=== PATIENT | male | born 1985 | race Caucasian/White ===

== ENCOUNTER 2017-07-15 16:14 | Outpatient (CLI) | payer BC ==
--- NOTE | 2017-07-16 09:47 | XRAY Report ---
TWO VIEW RIGHT KNEE: 07/15/2017 CLINICAL INDICATION: Bautista cyst. FINDINGS: Frontal and lateral views of the right knee demonstrate no evidence of fracture or dislocation. The joint spaces are preserved. No effusion is present. IMPRESSION: NORMAL RIGHT KNEE. TD: 07/16/2017 09:46
--- NOTE | 2017-07-16 09:55 | Ultrasound Report ---
ULTRASOUND RIGHT POPLITEAL FOSSA: 07/15/2017 CLINICAL INDICATION: Bautista cyst. TECHNIQUE: Real-time scanning was performed with industrial relations representative static images obtained. FINDINGS: Ultrasound of the right popliteal fossa was performed. There is a 5.4 x 3.7 x 1.0 cm Bautista cyst. No solid mass is seen. IMPRESSION: RIGHT POPLITEAL BAUTISTA CYST. TD: 07/16/2017 09:54
== END 2017-07-15 16:15 | disposition home or self-care (01) ==
LOC: DI 16:14
PROVIDERS: ATTEND Internal Medicine
DX: M71.21 Synovial cyst of popliteal space [Baker], right knee (principal)
CPT/HCPCS: 76882

== ENCOUNTER 2017-07-19 13:59 | Emergency (ER) | payer BC ==
[2017-07-19 14:05] VITALS: BP 144/75
--- NOTE | 2017-07-19 14:18 | ED Physician Documentation ---
PD HPI HEAD INJURY - Stated complaint Stated Complaint: HEAD LAC - Chief complaint Chief Complaint: Laceration - History obtained from History obtained from: Patient, Family - History of Present Illness Mechanism of head injury: Blow Where head injury occurred: Home Timing - onset: Today Location of injury: Front Associated symptoms: No: LOC, AMS, Amnesia, Nausea / vomiting, Neck pain, Paresthesias, Seizures, Ear drainage, Nasal drainage Symptoms improve with: Rest Symptoms worsen with: Palpation Contributing factors: No: Anticoagulated Similar symptoms before: Diagnosis (laceration) Recently seen: Not recently seen - Additional information Additional information: 32-year-old male was helping his father building a picnic senior care and his father dropped a 2 x 6 onto his head. He has a laceration to his scalp at the hairline and he did not have any loss of consciousness associated with this injury. He denies any nausea or vomiting dizziness headache or trouble concentrating. Review of Systems Constitutional: denies: Fever Eyes: denies: Decreased vision Ears: denies: Ear pain Nose: denies: Rhinorrhea / runny nose, Congestion Throat: denies: Sore throat Respiratory: denies: Cough GI: denies: Nausea, Vomiting Skin: reports: Laceration (s). denies: Rash Musculoskeletal: denies: Neck pain, Back pain Neurologic: reports: Head injury. denies: Generalized weakness, Focal weakness , Numbness, Headache, LOC PD PAST MEDICAL HISTORY - Past Medical History Past Medical History: Yes GI: Crohn's disease - Present Medications Home Medications: Ambulatory Orders Medication Instructions Recorded Confirmed Adalimumab [Humira] 07/19/17 - Allergies Allergies/Adverse Reactions: Allergies Allergy/AdvReac Type Severity Reaction Status Date / Time No Known Drug Allergies Allergy Verified 07/19/17 14:05 - Social History Does the pt smoke?: No Smoking Status: Never smoker - Immunizations Immunizations: TDAP >10years/unknown PD ED PE NORMAL - Vitals Vital signs reviewed: Yes (Hypertensive mild) - General General: Alert and oriented X 3, No acute distress, Well developed/nourished - HEENT HEENT: Atraumatic, PERRL, EOMI, Other (In the center of the forehead at the hairline is a 3 and half centimeter laceration that does not involve deeper structures. Wound is clean and the margins are without maceration. ) - Neck Neck: Supple, no meningeal sign - Respiratory Respiratory: No respiratory distress - Derm Derm: Normal color, Warm and dry, No rash - Extremities Extremities: No deformity, No edema - Neuro Neuro: Alert and oriented X 3, licensed pharmacist 2-12 intact, No motor deficit, No sensory deficit, Normal speech Eye Opening: Spontaneous Motor: Obeys Commands Verbal: Oriented GCS Score: 15 - Psych Psych: Normal mood, Normal affect Results - Vitals Vitals: Vital Signs - 24 hr 07/19/17 14:03 Temperature 37 C Heart Rate 61 Respiratory 16 Rate Blood Pressure 144/75 H O2 Saturation 98 Oxygen O2 Source Room air Procedures - Laceration (location) forehead Length in cm: 3.5 Wound type: Linear, Clean Neurovascular status: Sensory intact, Motor intact, Vascular intact Tendon involvement: Tendon intact Wound Preparation: Irrigated copiously NS, Wound explored, To the base Skin layer closure: Dermabond Other: Patient tolerated well, No complications, Neurovascular intact, Dressing applied, Tetanus booster given Complexity: Simple PD MEDICAL DECISION MAKING - ED course Complexity details: considered differential, d/w patient, d/w family ED course: 32-year-old male with a laceration to the forehead that is superficial has good reapproximation of the skin and this is closed with Dermabond. Is given a tetanus booster. Departure - Departure Disposition: 01 Home, Self Care Clinical Impression: Forehead laceration Qualifiers: Encounter type: initial encounter Qualified Code(s): S01.81XA - Laceration without foreign body of other part of head, initial encounter Condition: Stable Instructions: ED Laceration Facial Skin Glue Follow-Up: [facility] [Provider Group]
[2017-07-19] MEDS ORDERED: TETANUS/DIPHTHERIA/PERTUSSIS 0.5 ML SYRINGE IM ONE (14:19)
== END 2017-07-19 14:37 | disposition home or self-care (01) ==
LOC: ED 13:59
DX: S01.81XA Laceration without foreign body of other part of head, initial encounter (principal); W20.8XXA Other cause of strike by thrown, projected or falling object, initial encounter; Y93.H3 Activity, building and construction; Y92.009 Unspecified place in unspecified non-institutional (private) residence as the place of occurrence of the external cause
CPT/HCPCS: 12013; 90471; 99282; 99283

== ENCOUNTER 2018-03-02 09:08 | Outpatient (CLI) | payer BC ==
[2018-03-02 18:36] LABS: BASOPHILS % (AUTO) 0.5 %; EOSINOPHILS % (AUTO) 1.5 %; LYMPHOCYTES # (AUTO) 1.2 10^3/uL (1.5-3.5); LYMPHOCYTES % (AUTO) 37.1 %; MEAN CORPUSCULAR HEMOGLOBIN 30.7 pg (27.0-31.0); MEAN CORPUSCULAR HGB CONC 33.5 g/dL (32.0-36.0); MEAN CORPUSCULAR VOLUME 91.5 fL (80.0-94.0); MEAN PLATELET VOLUME 8.3 fL (7.4-11.4); MONOCYTES # (AUTO) 0.2 10^3/uL (0.0-1.0); MONOCYTES % (AUTO) 7.5 %; NEUTROPHILS # (AUTO) 1.8 10^3/uL (1.5-6.6); NEUTROPHILS % (AUTO) 53.4 %; PLT - PLATELET COUNT 194 10^3/uL (130-450); RED BLOOD COUNT 4.56 10^6/uL (4.70-6.10); RED CELL DISTRIBUTION WIDTH 14.2 % (12.0-15.0); WHITE BLOOD COUNT 3.3 x10^3/uL (4.8-10.8)
[2018-03-02 18:58] LABS: ALBUMIN 4.6 g/dL (3.2-5.5); ALBUMIN/GLOBULIN RATIO 1.6 (1.0-2.2); BILIRUBIN,TOTAL 0.9 mg/dL (0.2-1.0); CALCIUM 9.5 mg/dL (8.5-10.3); CREATININE 0.9 mg/dL (0.6-1.2); TOTAL PROTEIN 7.5 g/dL (6.7-8.2)
== END 2018-03-02 09:09 | disposition home or self-care (01) ==
LOC: LAB.F 09:08
PROVIDERS: ATTEND Internal Medicine Gastroenterology
DX: K50.012 Crohn's disease of small intestine with intestinal obstruction (principal)
CPT/HCPCS: 36415; 80053; 82607; 85025

== ENCOUNTER 2020-07-25 07:53 | Outpatient (CLI) | payer BC | END 2020-07-25 07:54 | disposition home or self-care (01) | LOC: LAB.S 07:53 | PROVIDERS: ATTEND Family Medicine | DX: Z01.84 Encounter for antibody response examination (principal) | CPT/HCPCS: 86769 ==

== ENCOUNTER 2020-09-04 07:34 | Outpatient (CLI) | payer BC ==
[2020-09-04 14:46] LABS: BASOPHILS % (AUTO) 0.6 %; EOSINOPHILS # (AUTO) 0.1 10^3/uL (0.0-0.7); EOSINOPHILS % (AUTO) 2.2 %; HCT - HEMATOCRIT 41.2 % (42.0-52.0); HGB - HEMOGLOBIN 13.3 g/dL (14.0-18.0); LYMPHOCYTES # (AUTO) 1.2 10^3/uL (1.5-3.5); LYMPHOCYTES % (AUTO) 38.5 %; MEAN CORPUSCULAR HGB CONC 32.3 g/dL (32.0-36.0); MONOCYTES # (AUTO) 0.3 10^3/uL (0.0-1.0); MONOCYTES % (AUTO) 10.4 %; NEUTROPHILS # (AUTO) 1.5 10^3/uL (1.5-6.6); PLT - PLATELET COUNT 199 10^3/uL (130-450); RED BLOOD COUNT 4.43 10^6/uL (4.70-6.10); WHITE BLOOD COUNT 3.2 x10^3/uL (4.8-10.8)
[2020-09-04 15:44] LABS: ALBUMIN 4.3 g/dL (3.2-5.5); ALBUMIN/GLOBULIN RATIO 1.4 (1.0-2.2); ALKALINE PHOSPHATASE 43 IU/L (42-121); ALT ALANINE AMINOTRANSFERASE 23 IU/L (10-60); AST ASPARTATE AMINOTRANSFERASE 32 IU/L (10-42); BILIRUBIN,TOTAL 1.1 mg/dL (0.2-1.0); BUN - BLOOD UREA NITROGEN 22 mg/dL (6-20); CALCIUM 8.9 mg/dL (8.5-10.3); CARBON DIOXIDE - CO2 27 mmol/L (21-32); CHLORIDE 101 mmol/L (101-111); CREATININE 0.9 mg/dL (0.6-1.2); GFR - MDRD 97 (>89); GLUCOSE 95 mg/dL (70-100); POTASSIUM 4.2 mmol/L (3.5-5.0); SODIUM 135 mmol/L (135-145); TOTAL PROTEIN 7.3 g/dL (6.7-8.2)
[2020-09-04 15:55] LABS: CRP - C-REACTIVE PROTEIN < 1.0 mg/dL (0-1.0)
== END 2020-09-04 07:35 | disposition home or self-care (01) ==
LOC: LAB.S 07:34
PROVIDERS: ATTEND Internal Medicine Gastroenterology
DX: K50.012 Crohn's disease of small intestine with intestinal obstruction (principal)
CPT/HCPCS: 36415; 80053; 85025; 85651; 86140

== ENCOUNTER 2021-11-21 07:00 | Outpatient (CLI) | payer BC | END 2021-11-21 23:59 | disposition home or self-care (01) | LOC: LAB.R 07:00 | PROVIDERS: ATTEND Internal Medicine Gastroenterology | DX: K50.012 Crohn's disease of small intestine with intestinal obstruction (principal) | CPT/HCPCS: 83993 ==

== ENCOUNTER 2022-01-01 08:00 | Outpatient (CLI) | payer BC | END 2022-01-01 23:59 | disposition home or self-care (01) | LOC: LAB.S 08:00 | PROVIDERS: ATTEND Physician Assistant | DX: J02.9 Acute pharyngitis, unspecified (principal) | CPT/HCPCS: 87070 ==

== ENCOUNTER 2022-03-17 22:26 | Emergency (ER) | payer BC ==
--- OUTSIDE RECORDS SUMMARY | 2022-03-17 22:37 | EXTERNAL MEDICAL SUMMARY RPT | Continuity of Care Document ---
:1985 Author Organization [facility] Address [address] [place] [address] Phone Care Team Providers Name Role Phone Unavailable Unavailable Unavailable Chacho Christopher Pa-C Unavailable Unavailable Allergies No information. Encounters No information. Functional Status No information. Immunizations No information. Medications date description facility 2022-01-02 00:00 adalimumab [facility] 2022-01-03 00:00 adalimumab [facility] 2022-01-02 00:00 budesonide [facility] 2022-01-03 00:00 budesonide [facility] 2022-01-02 00:00 folic acid [facility] 2022-01-03 00:00 folic acid [facility] 2022-01-02 00:00 budesonide [facility] 2022-01-03 00:00 budesonide [facility] 2022-01-02 00:00 adalimumab [facility] 2022-01-03 00:00 adalimumab [facility] 2022-01-02 00:00 adalimumab [facility] 2022-01-03 00:00 adalimumab [facility] 2022-01-02 00:00 budesonide [facility] 2022-01-03 00:00 budesonide [facility] 2022-01-02 00:00 budesonide [facility] 2022-01-03 00:00 budesonide [facility] 2022-01-02 00:00 folic acid [facility] 2022-01-03 00:00 folic acid [facility] 2022-01-02 00:00 adalimumab [facility] 2022-01-03 00:00 adalimumab [facility] 2022-01-02 00:00 folic acid [facility] 2022-01-03 00:00 folic acid [facility] 2022-01-02 00:00 folic acid [facility] [place] 2022-01-03 00:00 folic acid [facility] Problems date description facility 2022-01-01 00:00 Pain in throat [facility] [place] 2022-01-01 00:00 Acute pharyngitis [facility] [place] 2022-01-01 00:00 Acute pharyngitis, unspecified [facility] Procedures date description facility 2022-01-01 00:00 Visit Code Hold [facility] [place] 2022-01-01 00:00 POC STREP TEST [facility] Results/Labs test date author facility value unit interpret ation Result panel 1 (unknown) (no date) (unknown) [facility] (no value) (units [facility] Result panel 2 (unknown) (no date) (unknown) [facility] (no value) (units [facility] Result panel 3 (unknown) (no date) (unknown) [facility] (no value) (units [facility] Result panel 4 (unknown) (no date) (unknown) [facility] (no value) (units ([facility] nown[facility] Result panel 5 (unknown) (no date) (unknown) [facility] (no value) (units ([facility] Result panel 6 (unknown) (no date) (unknown) [facility] (no value) (units ([facility] Result panel 7 (unknown) (no date) (unknown) [facility] (no value) (units ([facility] nown[facility] Result panel 8 (unknown) (no date) (unknown) [facility] (no value) (units ([facility] n[facility] Social History date description facility 2022-01-01 00:00 Never smoker [facility] [place] [facility] Vital Signs date measurement value units 2022-01-01 00:00 BMI 25.29 kg/m2 2022-01-01 00:00 BP_diastolic 77 mmHg 2022-01-01 00:00 BP_systolic 127 mmHg 2022-01-01 00:00 heart_rate 51 /min 2022-01-01 00:00 height_metric 184.15 cm 2022-01-01 00:00 height_standard 72.5 in 2022-01-01 00:00 respiration_rate 15 /min 2022-01-01 00:00 temperature_metric 36.56 C 2022-01-01 00:00 temperature_standard 97.8 F 2022-01-01 00:00 weight_metric 85.46 kg 2022-01-01 00:00 weight_standard 188.4 lb
[2022-03-17 23:00] LABS: EOSINOPHILS # (AUTO) 0.1 10^3/uL (0.0-0.7); EOSINOPHILS % (AUTO) 0.7 %; HCT - HEMATOCRIT 43.1 % (42.0-52.0); HGB - HEMOGLOBIN 14.9 g/dL (14.0-18.0); LYMPHOCYTES # (AUTO) 0.4 10^3/uL (1.5-3.5); MEAN CORPUSCULAR HEMOGLOBIN 29.9 pg (27.0-31.0); MEAN CORPUSCULAR HGB CONC 34.6 g/dL (32.0-36.0); MEAN CORPUSCULAR VOLUME 86.5 fL (80.0-94.0); MONOCYTES # (AUTO) 0.4 10^3/uL (0.0-1.0); MONOCYTES % (AUTO) 5.5 %; NEUTROPHILS # (AUTO) 6.8 10^3/uL (1.5-6.6); NEUTROPHILS % (AUTO) 88.5 %; PLT - PLATELET COUNT 191 10^3/uL (130-450); RED BLOOD COUNT 4.98 10^6/uL (4.70-6.10); RED CELL DISTRIBUTION WIDTH 12.5 % (12.0-15.0); WHITE BLOOD COUNT 7.7 x10^3/uL (4.8-10.8)
[2022-03-17 23:17] LABS: ALBUMIN 5.1 g/dL (3.2-5.5); ALBUMIN/GLOBULIN RATIO 1.6 (1.0-2.2); BILIRUBIN,TOTAL 1.4 mg/dL (0.2-1.0); CALCIUM 9.6 mg/dL (8.5-10.3); POTASSIUM 3.9 mmol/L (3.5-5.0); TOTAL PROTEIN 8.3 g/dL (6.7-8.2)
[2022-03-18] MEDS ORDERED: ONDANSETRON 4 MG/2 ML VIAL IVP STA (00:01)
[2022-03-18] MEDS ORDERED: SODIUM CHLORIDE 0.9% 1,000 ML IV STA (00:01)
[2022-03-18] MEDS ORDERED: ONDANSETRON ODT 4 MG Prepack 2 TL PRN (01:01)
--- NOTE | 2022-03-18 01:01 | ED Physician Documentation ---
PD HPI NVD - Stated complaint Stated Complaint: N/V/D, FEVER, HANDS/FEET NUMBNESS - Chief complaint Chief Complaint: Abd Pain - History obtained from History obtained from: Patient, Family - History of Present Illness Timing - onset: Enter time (1800), Today Timing - duration: Hours Timing - details: Abrupt onset, Still present Associated symptoms: Loss of appetite Contributing factors: Bad food Improved by: Vomiting Worsened by: Eating Similar symptoms before: Diagnosis (food poisoning/chrons disease) Recently seen: Not recently seen - Additonal information Additional information: 37-year-old Vahe Mason has developed acute nausea vomiting abdominal pain and diarrhea at about 1800 today. He had rapid onset of symptoms and is concerned about the possibility of food poisoning. He has got some pain in his abdomen that is from dry heaving. He has a prior history of Crohn's disease and has had a prior bowel obstruction. He states that this is different from his bowel obstruction and that he initially had pain as his initial symptom with a bowel obstruction and today he has had vomiting as his initial symptom followed by diarrhea and then abdominal pain from multiple times vomiting. The patient states that his Crohn's disease has been under good control with no complications with the use of Humira. He is also on methotrexate. He has not had surgery previously. Other members of his family are currently ill with vomiting. Review of Systems Constitutional: reports: Chills, Fatigue, Sweats Eyes: denies: Decreased vision Ears: denies: Ear pain Nose: denies: Rhinorrhea / runny nose, Congestion Throat: denies: Sore throat Cardiac: denies: Chest pain / pressure, Palpitations Respiratory: denies: Dyspnea, Cough GI: reports: Abdominal Pain, Nausea, Vomiting, Diarrhea : denies: Dysuria, Frequency Skin: denies: Rash Musculoskeletal: reports: Back pain. denies: Neck pain, Extremity pain Neurologic: denies: Generalized weakness, Focal weakness, Numbness PD PAST MEDICAL HISTORY - Past Medical History Past Medical History: Yes GI: Crohn's disease - Present Medications Home Medications: Ambulatory Orders Medication Instructions Recorded Confirmed Adalimumab [Humira] 07/19/17 Folic Acid 1 mg PO DAILY 03/18/22 03/18/22 Methotrexate [Methotrexate Sodium] 2.5 mg PO DAILY 03/18/22 03/18/22 Ondansetron Odt [Zofran] 4 mg TL Q6H PRN #10 tablet 03/18/22 - Allergies Allergies/Adverse Reactions: Allergies Allergy/AdvReac Type Severity Reaction Status Date / Time No Known Drug Allergies Allergy Verified 07/19/17 14:05 - Social History Does the pt smoke?: No Smoking Status: Never smoker - Immunizations Immunizations: TDAP >10years/unknown - POLST Patient has POLST: No PD ED PE NORMAL - Vitals Vital signs reviewed: Yes - General General: Alert and oriented X 3, Well developed/nourished, Other (37-year-old male appears diaphoretic in the position is moving slowly and appears nauseated.) - HEENT HEENT: Atraumatic, PERRL, EOMI - Neck Neck: Supple, no meningeal sign, No bony TTP - Cardiac Cardiac: RRR, No murmur - Respiratory Respiratory: No respiratory distress, Clear bilaterally - Abdomen Abdomen: Soft, Non tender - Back Back: No CVA TTP, No spinal TTP - Derm Derm: Normal color, Warm and dry, No rash - Extremities Extremities: No deformity, No edema - Neuro Neuro: Alert and oriented X 3, management professional 2-12 intact, No motor deficit, No sensory deficit, Normal speech Eye Opening: Spontaneous Motor: Obeys Commands Verbal: Oriented GCS Score: 15 - Psych Psych: Normal mood, Normal affect Results - Vitals Vitals: Vital Signs - 24 hr 03/17/22 03/17/22 03/18/22 22:35 22:38 00:30 Temperature 37.4 C 37.4 C Heart Rate 97 97 70 Respiratory 24 24 16 Rate Blood Pressure 132/79 H 132/79 H 127/61 O2 Saturation 100 100 94 03/18/22 01:00 Temperature 37.4 C Heart Rate 74 Respiratory 16 Rate Blood Pressure 122/65 O2 Saturation 96 Oxygen O2 Source Room air - Labs Labs: Laboratory Tests 03/17/22 03/17/22 22:55 22:55 WBC 7.7 RBC 4.98 Hgb 14.9 Hct 43.1 MCV 86.5 MCH 29.9 MCHC 34.6 RDW 12.5 Plt Count 191 MPV 10.0 Neut # (Auto) 6.8 H Lymph # (Auto) 0.4 L Hyde # (Auto) 0.4 Eos # (Auto) 0.1 Baso # (Auto) 0.0 Absolute Nucleated RBC 0.00 Nucleated RBC % 0.0 Sodium 135 Potassium 3.9 Chloride 98 L Carbon Dioxide 23 Anion Gap 14.0 H BUN 25 H Creatinine 1.0 Estimated GFR (MDRD) 85 L Glucose 101 H Calcium 9.6 Total Bilirubin 1.4 H AST 48 H ALT 50 Alkaline Phosphatase 47 Total Protein 8.3 H Albumin 5.1 Globulin 3.2 Albumin/Globulin Ratio 1.6 Lipase 38 PD Medical Decision Making - ED course Complexity details: reviewed old records (I reviewed a visit from 07/19/2017 for forehead laceration that was noncontributory for today's visit.), reviewed results, re-evaluated patient, considered differential, d/w patient, d/w family Reviewed Lab Results: We ordered complete blood cell count, blood chemistries and urinalysis. The results showed a normal white blood cell count hemoglobin hematocrit and a normal platelet count. The patient appeared ill and this was reassuring that t his was more likely food poisoning. The patient's chemistries are likewise unremarkable. He had mild elevation in his BUN consistent with acute dehydration and he had mild elevation in his AST of certain consequence. ED course: 37-year-old male with a history of Crohn's disease appears ill when he arrives to the emergency department and he has reassuring laboratory values and a reassuring clinical course in the emergency department. On arrival to the emergency department the patient was hyperventilating and complained of numbness to his hands and feet. He was diaphoretic and nauseated. He had had excessive diarrhea. We gained intravenous access and applied normal saline as well as Zofran with marked improvement. Patient's illness is most consistent with acute staphylococcal food poisoning and during his stay in the emergency department patient has marked improvement consistent with this. Other family members are ill at home as well with similar symptoms. We have dispensed some Zofran to the patient and he is wanting to go home. Departure - Departure Disposition: 01 Home, Self Care Clinical Impression: Gastroenteritis, Food poisoning Condition: Stable Instructions: ED Gastroenteritis Vs Food Poison Follow-Up: Chacho Christopher PA-C [Provider Admit Priv/Credential] - Prescriptions: Ondansetron Odt [Zofran] 4 mg TL Q6H PRN #10 tablet PRN Reason: Nausea / Vomiting Comments: Vahe, it looks like this is likely a food poisoning and should be a short illness. If you need to take more Zofran we have dispensed some to you this evening and there is additional Zofran waiting at the pharmacy at [facility]. Discharge Date/Time: 03/18/22 01:13
[2022-03-18 01:11] VITALS: BP 122/65
== END 2022-03-18 01:13 | disposition home or self-care (01) ==
LOC: ED 22:26
DX: A05.9 Bacterial foodborne intoxication, unspecified (principal); K52.9 Noninfective gastroenteritis and colitis, unspecified
CPT/HCPCS: 36415; 80053; 83690; 85025; 96361; 96374; 99283

== ENCOUNTER 2022-05-31 08:00 | Outpatient (CLI) | payer BC | END 2022-05-31 23:59 | disposition home or self-care (01) | LOC: LAB 08:00 | PROVIDERS: ATTEND Internal Medicine Gastroenterology | DX: K50.012 Crohn's disease of small intestine with intestinal obstruction (principal) | CPT/HCPCS: 83993 ==